=== PATIENT | female | born 1940 | race Caucasian/White ===

== ENCOUNTER 2016-06-11 16:49 | Emergency (ER) | payer OTHER, MEDICARE ==
[~2016-06-11] VITALS: Ht 149.9 cm; Wt 49.9 kg
[~2016-06-11 16:49] MED LIST: AMOXICILLIN250 M3 PO; BACTRIM DS TAB1 EACH PO; IBUPROFEN800 M1 PO; IRBESARTAN-HCT1 EACH PO; LEVOTHYROXINE125 MCG PO; MULTI-DAY VITA1 EACH PO; QUININE SULFAT324 M1 PO; SEA-OMEGA 50 C1 EACH PO; TIMOLOL MALEATE5 M4 OPH; TRAMADOL-ACETA1 EACH PO; TYLENOL WITH C1 EACH PO; VITAMIN B-121000 MC3 PO; VITAMIN D2000 UNIT PO; XALATAN2.5 ML OPH
--- NOTE | 2016-06-11 17:56 | ED GI/GU/ABDOMINAL COMPLAINT ---
History of Present Illness General Chief Complaint: General Adult Stated Complaint: PT COULD BE DEHYDRATED, HIGH BLOOD PRESSURE Source: patient, family, old records Exam Limitations: no limitations Vital Signs & Intake/Output Vital Signs & Intake/Output Vital Signs Date Time Temp Pulse Resp B/P Pulse O2 O2 Flow FiO2 Ox Delivery Rate 06/11 1905 96.7 67 18 168/73 97 06/11 190 Room Air 06/11 1747 97.9 65 18 164/79 97 Room Air Allergies Coded Allergies: No Known Drug Allergies (08/13/15) Reconcile Medications Amoxicillin 250 MG CAPSULE 1 CAP PO TID CELLULITIS Cholecalciferol (Vitamin D3) (Vitamin D) (Unknown Strength) CAPSULE (Unknown Dose) PO DAILY SUPPLEMENT (Reported) Cyanocobalamin (Vitamin B-12) (Unknown Strength) TABLET (Unknown Dose) PO DAILY SUPPLEMENT (Reported) Fish Oil ([place] 50 Capsule) (Unknown Strength) CAPSULE (Unknown Dose) PO DAILY SUPPLEMENT (Reported) Ibuprofen 800 MG TABLET 1 TAB PO PRN PAIN (Reported) Irbesartan/Hydrochlorothiazide (Irbesartan-Hctz 150-12.5 MG Tb) 1 EACH TABLET 1 TAB PO DAILY BP (Reported) Latanoprost (Xalatan) 2.5 ML DROPS 1 GTT OPH QPM BOTH EYES (Reported) Levothyroxine Sodium 125 MCG TABLET 0.5 TAB PO DAILY THYROID (Reported) Multivitamin (Multi-Day Vitamins) 1 EACH TABLET 1 TAB PO DAILY SUPPLEMENT ( Reported) Quinine Sulfate 324 MG CAPSULE 1 CAP PO BID LEG CRAMPS (Reported) Sulfamethoxazole/Trimethoprim (Bactrim Ds Tablet) 1 EACH TABLET 1 TAB PO BID CELLULITIS Timolol Maleate 5 ML DROPS 1 GTT OPH QAM BOTH EYES (Reported) Tramadol HCl/Acetaminophen (Tramadol-Acetaminophn 37.5-325) 1 EACH TABLET 1 TAB PO PRN PAIN (Reported) Tylenol With Codeine (Tylenol With Codeine #3 Tablet) 1 EACH TABLET 1 TAB PO Q8P PRN PAIN Triage Note: RECEIVED 76 YO FEMALE S/P COLONOSCOPY 3 WEEKS AGO. PT REPORTS 3 WEEKS OF BLACK DIARRHEA. DID NOT INFORM DR WHO DID PROCEEDURE. PT REPORTS NAUSEA, VOMITING, LIGHTHEADED, DIZZY. STATES SHE IS NOT HERSELF. PT FEELS SICK TO STOMACH Triage Nurses Notes Reviewed? yes ? N Is pt currently ? No Onset: Gradual Duration: week(s): (3), constant Timing: recent history Quality/Severity: aching, cramping Severity Numbers: 5 Location: generalized abdomen Radiation: no radiation Activities at Onset: none Prior Abdominal Problems: none No Modifying Factors: none Associated Symptoms: DENIES HPI: 76 Year old female with history of hypertension presents to the ER for evaluation complaining of dark loose stools for the past 3 weeks after she had a colonoscopy performed by Dr. Arrington at which time she states had anormal scope. The patient denies any other, pain urinary symptoms however reports to intermittent nausea. She denies any bloody stools or blood in her vomit. She is not sought care for the symptoms until today. She recently returned 2 days ago from vacation in [place] and states that she was not eating well indication question only with diarrhea. No history of similar episodes in the past. No recent weight loss. Her reports that she is been feeling dizzy and lightheaded, there is been no confusion however no recent falls or trauma. No chest pain no shortness of breath. She denies tobacco or alcohol or drug use (LILIBETH MAXWELL) Past History Travel History Traveled to [place] past 21 day No Medical History Any Pertinent Medical History? see below for history Neurological: NONE EENT: glaucoma Cardiovascular: hypertension Respiratory: NONE Gastrointestinal: NONE Hepatic: NONE Renal: NONE Musculoskeletal: disk herniation, ABSCESS TO BACK DDD Psychiatric: NONE Endocrine: hypothyroidism Blood Disorders: NONE Cancer(s): breast cancer REVIEW RN/Reproductive: NONE Surgical History Surgical History: non-contributory Psychosocial History What is your primary language [place] Tobacco Use: Quit >30 days ago Family History Hx Contributory? No (LILIBETH MAXWELL) Review of Systems Review of Systems Constitutional: Reports: see HPI. All Other Systems: Reviewed and Negative Comments Review of systems: See HPI, All other systems negative. Constitutional, no chills no fever, no malaise HEENT: No visual changes no sore throat no congestion Cardiovascular: No chest pain , no palpitation Skin, no jaundice no rashes, no change in skin Respiratory: No dyspnea no cough no sputum GI: No nausea no vomiting, no diarrhea, no bloating/constipation : No dysuria No hematuria, no frequency, no discharge Muscle skeletal: No joint pain, no joint swelling, no back pain, no neck pain, Neurologic: No numbnessno headache Psych: No stress Heme/endocrine: No bruising no bleeding Immunology: No lymphadenopathy, (LILIBETH MAXWELL) Physical Exam Physical Exam General Appearance: well developed/nourished, alert, awake Gastrointestinal: soft, non-tender Comments: Well-developed well-nourished person in no acute distress HEENT: Normal EENT exam; PERRL, EOMI. HEAD is atraumatic. moist mucous membranes. No icterus Neck: Supple normal range of motion Back: Nontender, no CVA tenderness. Full range of motion Cardiovascular: Regular rate and rhythms no murmurs rubs Respiratory: Chest nontender.There were no bony deformities, no asymmetry. No respiratory distress. Patient speaking in full complete sentences. Breath sounds clear to auscultation bilaterally: NO W/R/R Abdomen: Soft, nontender nondistended, no appreciable organomegaly. Normal bowel sounds. No rebound/guarding, No appreciable enlargement of the abdominal aorta, No ascites. Rectal: Nontender. Heme negative stool. No mass/hemorrhoid, no fissure. Extremity: No edema, full range of motion of extremities, Neuro: Alert oriented x3, motor sensory normal. There were no obvious focal neurologic abnormalities. Skin: No appreciable rash on exposed skin, skin is warm and dry. No jaundice Psych: Mood and affect is normal, memory and judgment is normal. Core Measures ACS in differential dx? Yes Severe Sepsis Present: No Septic Shock Present: No (LILIBETH MAXWELL) Progress Differential Diagnosis: bowel obstruction, colon cancer, diverticulitis, gastritis, hepatitis, hernia, ischemic bowel, inflamm bowel dis, perforated viscous, SBO, GI BLEED, MOHINI, ELECTROLYTE ABNORMALITY Plan of Care: Orders Procedure Date/time Status Add-on Test (ER Only) 06/11 1906 Active URINALYSIS 06/11 175 Complete MISTAKE 06/11 1751 Active Telemetry/Transmission Tester 06/11 1751 Active TROPONIN LEVEL 06/11 1751 Complete PARTIAL THROMBOPLASTIN TIME 06/11 1751 Complete PROTHROMBIN TIME 06/11 1751 Complete LACTIC ACID 06/11 1751 Complete ETHANOL 06/11 1751 Complete COMPREHENSIVE METABOLIC PANEL 06/11 175 Complete CBC WITHOUT DIFFERENTIAL 06/11 1751 Complete EKG 06/11 1751 Active TYPE & SCREEN (NOT X-MATCH) 06/11 1751 Complete Laboratory Tests 06/11/16 1822: Urine Color STRAW, Urine Clarity CLEAR, Urine pH 6.5, Ur Specific Barrington <= 1.005, Urine Protein NEG, Urine Ketones NEG, Urine Nitrite NEG, Urine Bilirubin NEG, Urine Urobilinogen 0.2, Ur Leukocyte Esterase MOD H, Ur Microscopic SEDIMENT EXAMINED, Urine WBC 3-5 H, Ur Epithelial Cells FEW, Urine Bacteria RARE H, Urine Hemoglobin NEG, Urine Glucose NEG 06/11/16 1820: PT 11.2, INR 1.07, APTT 31, CBC w Diff NO MAN DIFF REQ, RBC 3.66 L, MCV 94.9, MCH 33.7 H, RDW 12.0, MPV 7.9, Gran % 50.6, Lymphocytes % 40.4, Monocytes % 5.9 , Eosinophils % 2.6, Basophils % 0.5, Absolute Granulocytes 2.6, Absolute Lymphocytes 2.1, Absolute Monocytes 0.3, Absolute Eosinophils 0.1, Absolute Basophils 0, PUBS MCHC 35.5 06/11/16 1751: Anion Gap 15, Estimated GFR > 60, BUN/Creatinine Ratio 22.9, Glucose 85, Lactic Acid 1.2, Calcium 9.8, Total Bilirubin 0.8, AST 291 H, ALT 376 H, Alkaline Phosphatase 267 H, Troponin I < 0.01, Total Protein 7.6, Albumin 4.5, Globulin 3.1, Albumin/Globulin Ratio 1.5, Serum Alcohol < 10.0 Labs ordered old records reviewed. Orthostatics are negative Discussed with patient at length and her at length all of her lab results today, patient has not had previous lab work including LFTs performed here in the past. I discussed with her elevated LFTs patient is resting, but this time otherwise in no apparent distress pending CAT scan Case discussed with Dr. Weaver 06/11/2016 8:15:40 PM I discussed with the patient and her family all of her CAT scan findings incidental findings and her liver tests once again and lab work. The patient will follow up with her GI in [place] dr arrington this week for repeat lab work. The patient's states that she looks much improved after IV hydration the patient is a not had any episodes of diarrhea here in the department her abdomen exam remains soft nontender answered all their questions they feel comfortable this plan I had an extensive conversation regarding need for close follow up with their primary care physician this week as well as return precautions. I answered all of their questions, they feel comfortable with the plan and follow-up care. (NEGRO SHORT,LILIBETH) Diagnostic Imaging: Viewed by Me: CT Scan. Discussed w/RAD: CT Scan. Radiology Impression: PATIENT: LORIE HAYES PRESENT AGE: 76 PATIENT ACCOUNT NO: [id number] : 41 LOCATION: [facility] ORDERING PHYSICIAN: LILIBETH SHORT SERVICE DATE: 06/11/16 EXAM TYPE: CAT - CT ABD & PELVIS W IV CONTRAST EXAMINATION: CT ABDOMEN AND PELVIS WITH CONTRAST CLINICAL INFORMATION: 3 weeks of diarrhea. COMPARISON: None. TECHNIQUE: Multidetector volumetric imaging was performed of the abdomen and pelvis before and after the IV administration of 95 mL of Optiray 320 intravenous contrast. Sagittal and coronal reformatted images were obtained on the technologist's workstation. DLP: 234 mGy-cm FINDINGS: LUNG BASES: The visualized lung bases are unremarkable. LIVER, GALLBLADDER, AND BILIARY TREE: The liver is normal in size, shape, and attenuation. No focal hepatic lesion or intrahepatic biliary ductal dilatation is present. The gallbladder is contracted. There is a large calcified stone within the gallbladder lumen measuring 1.6 x 3.1 cm. No gallbladder wall thickening or pericholecystic inflammatory changes are identified. The common bile duct is prominent and is visualized measuring up to 1.3 cm in AP diameter. There are no visible radiopaque, intraductal obstructing stones. PANCREAS: Mild generalized pancreatic atrophy. No peripancreatic inflammatory changes or fluid collections. SPLEEN: Unremarkable. There is a small splenule at the splenic hilum. ADRENAL GLANDS: Unremarkable. KIDNEYS AND URETERS: There is a 3.5 cm simple renal cortical cyst arising from the lower pole of the right kidney. The kidneys are normal in size and enhance homogeneously, without solid parenchymal lesions. There is no appreciable nephrolithiasis or hydroureteronephrosis of either kidney or renal collecting system. No ureteral stones are identified. BLADDER: Unremarkable. GASTROINTESTINAL TRACT: Normal anatomic orientation of the stomach relative to the duodenum. Normal caliber of abdominal and pelvic bowel loops, without evidence of obstruction or ileus. No circumferential bowel wall thickening with surrounding inflammatory changes to suggest an underlying infectious or inflammatory enterocolitis. Scattered colonic diverticulosis, most significant along the sigmoid colon, without secondary signs of acute diverticulitis. Normal-appearing appendix within the right lower quadrant of the abdomen. No organizing intra-abdominal fluid collections or free intraperitoneal air. ABDOMINAL WALL: No significant hernia is appreciated. LYMPH NODES: There is a calcified lymph node adjacent to the bladder dome. No significant abdominal or pelvic adenopathy is identified. VASCULAR: Scattered atherosclerosis of the abdominal aorta and its branching vessels, without aneurysmal dilatation. The abdominal vasculature is patent. PELVIC VISCERA: Unremarkable. OSSEOUS STRUCTURES: No acute osseous abnormality. Moderate to severe multilevel degenerative changes of the imaged thoracolumbar spine, most significant at L2- L3, L4-L5 and L5-S1. No destructive osseous lesions. IMPRESSION: 1. No acute findings within the abdomen or pelvis to explain patient symptomatology. 2. Cholelithiasis, without secondary signs of acute cholecystitis. 3. Colonic diverticulosis, without secondary signs of acute diverticulitis. 4. A 3.5 cm simple renal cortical cyst arising from the lower pole of the right kidney. 5. Extrahepatic biliary ductal dilatation, with the common bile duct visualized measuring up to 1.3 cm in diameter. There are no visible, radiopaque intraductal obstructing stones. DICTATED BY: RENETTA LAURENT MD DATE/TIME DICTATED:06/11/161939 PRINCIPAL LAW CLERK:JACQUES DATE/TIME TRANSCRIBED:06/11/161939 CONFIDENTIAL, DO NOT COPY WITHOUT APPROPRIATE AUTHORIZATION. <Electronically signed in Other Vendor System> SIGNED BY: RENETTA LAURENT MD 06/11/161950 Initial ED EKG: normal sinus at 70, no acute ST segment changes no axis Rhythm Strip: normal sinus rhythm (LILIBETH MAXWELL) Departure Departure Time of Disposition: 2014 Disposition: HOME OR SELF CARE Condition: Stable Clinical Impression Primary Impression: Transaminitis Secondary Impressions: Diarrhea, Renal cyst Referrals: DILLON SIDHU MD Additional Instructions: follow up with your sales training manager regarding your symptoms and your elevated liver enzymes found today. drink plenty of clear fluids. return with any concerns Departure Forms: Customer Survey General Discharge Information (LILIBETH MAXWELL) PA/DEATH CLAIM EXAMINER Co-Sign Statement Statement: ED Attending supervision documentation- [x] I saw and evaluated the patient. I have also reviewed all the pertinent lab results and diagnostic results. I agree with the findings and the plan of care as documented in the PA's/DEATH CLAIM EXAMINER's documentation. [] I have reviewed the ED Record and agree with the PA's/DEATH CLAIM EXAMINER's documentation. [] Additions or exceptions (if any) to the PAs/DEATH CLAIM EXAMINER's note and plan are summarized below: [] (EVERETT ZEPEDA,LUIS Blake)
[2016-06-11 18:31] LABS: ABSOLUTE BASOPHIL COUNT 0 /CUMM (0.0-0.2); ABSOLUTE EOSINOPHIL COUNT 0.1 /CUMM (0.0-0.7); ABSOLUTE GRANULOCYTE CT 2.6 /CUMM (1.4-6.5); ABSOLUTE LYMPH COUNT 2.1 /CUMM (1.2-3.4); ABSOLUTE MONOCYTE COUNT 0.3 /CUMM (0.10-0.60); BASOPHIL % 0.5 % (0.0-2.0); EOSINOPHIL % 2.6 % (0-5); GRANULOCYTE % 50.6 % (42.2-75.2); HEMATOCRIT 34.7 % (37-47); MEAN CORPUSCULAR HGB 33.7 PG (27.0-31.0); MEAN CORPUSCULAR HGB CONC 35.5 G/DL (33.0-37.0); MEAN CORPUSCULAR VOLUME 94.9 FL (81.0-99.0); MEAN PLATELET VOLUME 7.9 FL (7.4-10.4); PLATELET COUNT 245 /CUMM (130-400); RED BLOOD CELL CT 3.66 /CUMM (4.20-5.40); WHITE BLOOD CELL COUNT 5.2 /CUMM (4.8-10.8)
[2016-06-11 18:43] LABS: PT 11.2 SEC (9.4-12.5); PTT 31 SEC (25-37)
[2016-06-11 19:06] VITALS: BP 168/73
--- NOTE | 2016-06-11 19:51 | CT SCAN REPORT ---
EXAMINATION: CT ABDOMEN AND PELVIS WITH CONTRAST CLINICAL INFORMATION: 3 weeks of diarrhea. COMPARISON: None. TECHNIQUE: Multidetector volumetric imaging was performed of the abdomen and pelvis before and after the IV administration of 95 mL of Optiray 320 intravenous contrast. Sagittal and coronal reformatted images were obtained on the technologist's workstation. DLP: 234 mGy-cm FINDINGS: LUNG BASES: The visualized lung bases are unremarkable. LIVER, GALLBLADDER, AND BILIARY TREE: The liver is normal in size, shape, and attenuation. No focal hepatic lesion or intrahepatic biliary ductal dilatation is present. The gallbladder is contracted. There is a large calcified stone within the gallbladder lumen measuring 1.6 x 3.1 cm. No gallbladder wall thickening or pericholecystic inflammatory changes are identified. The common bile duct is prominent and is visualized measuring up to 1.3 cm in AP diameter. There are no visible radiopaque, intraductal obstructing stones. PANCREAS: Mild generalized pancreatic atrophy. No peripancreatic inflammatory changes or fluid collections. SPLEEN: Unremarkable. There is a small splenule at the splenic hilum. ADRENAL GLANDS: Unremarkable. KIDNEYS AND URETERS: There is a 3.5 cm simple renal cortical cyst arising from the lower pole of the right kidney. The kidneys are normal in size and enhance homogeneously, without solid parenchymal lesions. There is no appreciable nephrolithiasis or hydroureteronephrosis of either kidney or renal collecting system. No ureteral stones are identified. BLADDER: Unremarkable. GASTROINTESTINAL TRACT: Normal anatomic orientation of the stomach relative to the duodenum. Normal caliber of abdominal and pelvic bowel loops, without evidence of obstruction or ileus. No circumferential bowel wall thickening with surrounding inflammatory changes to suggest an underlying infectious or inflammatory enterocolitis. Scattered colonic diverticulosis, most significant along the sigmoid colon, without secondary signs of acute diverticulitis. Normal-appearing appendix within the right lower quadrant of the abdomen. No organizing intra-abdominal fluid collections or free intraperitoneal air. ABDOMINAL WALL: No significant hernia is appreciated. LYMPH NODES: There is a calcified lymph node adjacent to the bladder dome. No significant abdominal or pelvic adenopathy is identified. VASCULAR: Scattered atherosclerosis of the abdominal aorta and its branching vessels, without aneurysmal dilatation. The abdominal vasculature is patent. PELVIC VISCERA: Unremarkable. OSSEOUS STRUCTURES: No acute osseous abnormality. Moderate to severe multilevel degenerative changes of the imaged thoracolumbar spine, most significant at L2-L3, L4-L5 and L5-S1. No destructive osseous lesions. IMPRESSION: 1. No acute findings within the abdomen or pelvis to explain patient symptomatology. 2. Cholelithiasis, without secondary signs of acute cholecystitis. 3. Colonic diverticulosis, without secondary signs of acute diverticulitis. 4. A 3.5 cm simple renal cortical cyst arising from the lower pole of the right kidney. 5. Extrahepatic biliary ductal dilatation, with the common bile duct visualized measuring up to 1.3 cm in diameter. There are no visible, radiopaque intraductal obstructing stones.
== END 2016-06-11 20:59 ==
LOC: ERH 16:49
PROVIDERS: Physician Assistant Medical
DX: R74.0 Nonspecific elevation of levels of transaminase and lactic acid dehydrogenase [LDH] (principal); N28.1 Cyst of kidney, acquired; R19.7 Diarrhea, unspecified
CPT/HCPCS: 36415; 74177; 81001; 93005; 93010; G0480